=== PATIENT | male | born 1980 | race Caucasian/White ===

== ENCOUNTER 2019-07-28 17:26 | Emergency (ER) | payer MEDICAID, SELFPAY ==
[2019-07-28 17:27] VITALS: BP 99/64; PULSE 68; RESP 16; O2SAT 95; BMI 18.6
--- NOTE | 2019-07-28 17:57 | PC.NURSE ---
PT REQUESTING MEDS TO BE GIVEN IV , BUT HE GOT THEM IM , HE ALSO WANTS SOMETHING TO EAT TRAY ORDERED FOR HIM
--- NOTE | 2019-07-28 18:12 | HMH.EDNVD ---
ED Disposition Clinical Impression: Opiate withdrawal Disposition: Home, Self-Care Condition on Discharge: Good Instructions: DI for Nausea -- Adult, DI for Nausea -- Child, DI for Diarrhea and Traveler's Diarrhea -- Adult, DI for Diarrhea and Traveler's Diarrhea -- Child Prescriptions: Ondansetron [Zofran 4mg ODT] 4 mg PO TID PRN 4 Days #15 tab.rapdis PRN Reason: Nausea Transmission Status: Pending to [facility] - Critical Care Critical Care Time: No Attestation: On , the high probability of a clinically significant, sudden or life threatening deterioration of the following system(s) required my full and direct attention, intervention and personal management. The time I documented below is in addition to time spent performing reported procedures but includes the following listed in this critical care notation. Medical Decision Making - Medical Records Medical records reviewed: Yes: I reviewed the patient's medical records. - Quintin Inquiry Pt receiving controlled substance: No Vital Signs: 07/28/19 17:27 Pulse Rate [Radial] 68 Respiratory Rate 16 Blood Pressure [Right Arm] 99/64 L Blood Pressure Mean [Right Arm] 75 Blood Pressure Source [Right Arm] Automatic Cuff Blood Pressure Position [Right Arm] Sitting 02 Sat by Pulse Oximetry 95 Oxygen Delivery Method Room Air - Lab Data Lab results reviewed: Yes: I reviewed the patient's lab results. Orders (Tests/Meds): ED MEDICATIONS Discontinued Medications Generic Name Dose Route Start Last Admin Trade Name Freq PRN Reason Stop Dose Admin Promethazine HCl 50 mg 07/28/19 17:55 07/28/19 17:56 Phenergan 50mg/Ml Vial IM 07/28/19 17:56 50 mg ONCE ONE Administration Nausea/Vomiting/Diarrhea HPI - General Chief complaint: Nausea/Vomiting/Diarrhea Stated complaint: Detox Drugs Time Seen by Provider: 07/28/19 18:00 Mode of Arrival: Wheelchair Source of Information: Patient Limitations: No Limitations Description of Symptoms (Recalled from ER Triage Doc. by RN): States that he is freezing, can't breath, and out of energy. Currently at a treatment center in [place] for detox but states it has never been this bad. - History of Present Illness HPI Narrative: 38-year-old male presents the ED and acute opiate withdrawal. He is presently being held is that the drug he house in [place]. 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 Otherwise no evidence of any infectious process. Presently is on day 2 of his withdrawal. - Related Data Previous Rx's Medication Instructions Recorded Ondansetron [Zofran 4mg ODT] 4 mg PO TID PRN 4 Days #15 07/28/19 tab.rapdis Allergies Allergy/AdvReac Type Severity Reaction Status Date / Time Fish Containing Products Allergy Verified 07/28/19 17:45 [facility] History - Hepatitis A Screen Drug use history?: Yes High risk sexual behaviors?: No History of sexually transmitted infection?: No Currently employed?: No Childcare worker?: No Do you have indoor plumbing?: Yes Do you have electricity?: Yes Attestation statement:: This patient has been screened for Hepatitis A risk factors. I have reviewed the patient's past medical history: Yes - Social History Educational Level: Completed High School Smoking Status: Current every day smoker Tobacco Type: cigarettes # Packs/Day (cigarettes): 1 Alcohol Intake: never Substance Use Type: heroin, IV drugs Last Used Substance: days (ago) Occupational Status: other ROS Obtained: Yes All systems reviewed & no additional complaints - Constitutional Constitutional: Reports system reviewed and no additional complaints, except as docu - Eyes Eyes: Reports system reviewed and no additional complaints, except as docu - ENT Ears, Nose, Mouth, and Throat: Reports system reviewed and no additional complaints, except as docu -
[2019-07-28 18:22] VITALS: BP 99/64; PULSE 68; RESP 16; TEMP 36.7; O2SAT 95
== END 2019-07-28 18:25 | disposition home or self-care (01) ==
PROVIDERS: Emergency Provider Family Medicine
DX: F11.23 Opioid dependence with withdrawal (principal); F17.210 Nicotine dependence, cigarettes, uncomplicated
CPT/HCPCS: 96372; 99281